=== PATIENT | female | born 2000 | race Caucasian/White ===

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

== ENCOUNTER 2022-06-07 12:45 | Day surgery (SDC) | payer BC ==
[~2022-06-07 12:45] MED LIST: Lactated Ringers 1,000 ML IV SCH; Sodium Chloride 0.9% 10 ML Syringe FLUSH PRN
[2022-06-07] MEDS ORDERED: Propofol 200 MG/20 ML SDV IV ONE (12:46)
[2022-06-07 13:38] VITALS: BP 119/71; PULSE 77
[2022-06-07] MEDS ORDERED: Midazolam 1 MG/ML 2 ML SDV ONE (13:56)
[2022-06-07] MEDS ORDERED: Propofol 200 MG/20 ML SDV ONE ×2 (13:56→14:11)
== END 2022-06-07 16:22 | disposition home or self-care (01) ==
LOC: KA.SDS 12:45
PROVIDERS: ATTEND Surgery
DX: R19.4 Change in bowel habit (principal); R19.7 Diarrhea, unspecified; D58.9 Hereditary hemolytic anemia, unspecified; Z79.899 Other long term (current) drug therapy
CPT/HCPCS: 81025; J2250; J2704; J7120